=== PATIENT | male | born 1955 | race Caucasian/White ===

== ENCOUNTER 2022-01-25 14:31 | Emergency (ER) | payer MEDICARE, OTHER ==
[~2022-01-25] VITALS: Ht 177.8 cm; Wt 104.3 kg
== END 2022-01-25 16:17 | disposition home or self-care (01) ==
LOC: ER 14:31
DX: S61.216A Laceration without foreign body of right little finger without damage to nail, initial encounter (principal); W01.198A Fall on same level from slipping, tripping and stumbling with subsequent striking against other object, initial encounter
CPT/HCPCS: 90714